=== PATIENT | female | born 1955 | race Caucasian/White ===

== ENCOUNTER 2023-03-24 11:03 | Outpatient (CLI) | payer MEDICARE | END 2023-03-24 11:04 | disposition home or self-care (01) | LOC: CSHWCC 11:03 | PROVIDERS: ATTEND Preventive Medicine Undersea and Hyperbaric Medicine | DX: I87.312 Chronic venous hypertension (idiopathic) with ulcer of left lower extremity (principal); R60.0 Localized edema | CPT/HCPCS: 29581; G0463; 99212 ==

== ENCOUNTER 2023-03-29 10:00 | Outpatient (CLI) | payer MEDICARE | END 2023-03-29 10:01 | disposition home or self-care (01) | LOC: CSHWCC 10:00 | PROVIDERS: ATTEND Physician Assistant | DX: I87.312 Chronic venous hypertension (idiopathic) with ulcer of left lower extremity (principal); R60.0 Localized edema | CPT/HCPCS: 29581 ==

== ENCOUNTER 2023-03-31 14:56 | Outpatient (CLI) | payer MEDICARE | END 2023-03-31 14:57 | disposition home or self-care (01) | LOC: CSHWCC 14:56 | PROVIDERS: ATTEND Physician Assistant | DX: I87.312 Chronic venous hypertension (idiopathic) with ulcer of left lower extremity (principal); R60.0 Localized edema | CPT/HCPCS: 29581 ==

== ENCOUNTER 2023-04-08 13:03 | Outpatient (CLI) | payer MEDICARE | END 2023-04-08 13:04 | disposition home or self-care (01) | LOC: CSHWCC 13:03 | PROVIDERS: ATTEND Physician Assistant | DX: I87.312 Chronic venous hypertension (idiopathic) with ulcer of left lower extremity (principal); R60.0 Localized edema ==

== ENCOUNTER 2023-04-12 09:35 | Outpatient (CLI) | payer MEDICARE | END 2023-04-12 09:36 | disposition home or self-care (01) | LOC: CSHWCC 09:35 | PROVIDERS: ATTEND Physician Assistant | DX: I87.312 Chronic venous hypertension (idiopathic) with ulcer of left lower extremity (principal); R60.0 Localized edema | CPT/HCPCS: 29581 ==

== ENCOUNTER 2023-05-07 11:42 | Outpatient (CLI) | payer MEDICARE | END 2023-05-07 11:43 | disposition home or self-care (01) | LOC: CSHWCC 11:42 | PROVIDERS: ATTEND Preventive Medicine Undersea and Hyperbaric Medicine | DX: I87.312 Chronic venous hypertension (idiopathic) with ulcer of left lower extremity (principal); R60.0 Localized edema | CPT/HCPCS: 29581; 99213; G0463 ==

== ENCOUNTER 2023-05-14 13:54 | Outpatient (CLI) | payer MEDICARE | END 2023-05-14 13:55 | disposition home or self-care (01) | LOC: CSHWCC 13:54 | PROVIDERS: ATTEND Preventive Medicine Undersea and Hyperbaric Medicine | DX: I87.312 Chronic venous hypertension (idiopathic) with ulcer of left lower extremity (principal); L97.929 Non-pressure chronic ulcer of unspecified part of left lower leg with unspecified severity; R60.0 Localized edema | CPT/HCPCS: 29581 ==

== ENCOUNTER 2023-05-25 13:26 | Outpatient (CLI) | payer MEDICARE | END 2023-05-25 13:27 | disposition home or self-care (01) | LOC: CSHWCC 13:26 | PROVIDERS: ATTEND Physician Assistant | DX: I87.312 Chronic venous hypertension (idiopathic) with ulcer of left lower extremity (principal); L97.929 Non-pressure chronic ulcer of unspecified part of left lower leg with unspecified severity; R60.0 Localized edema | CPT/HCPCS: 99213; G0463 ==